=== PATIENT | male | born 1975 | race Caucasian/White ===

== ENCOUNTER 2017-08-16 21:33 | Emergency (ER) | payer OTHER ==
[2017-08-16] MEDS ORDERED: HYDROCODONE/ACETAMINOPHEN 5-325 MG (6 TAB/ER DISP) PO PRN (22:49)
[2017-08-16] MEDS ORDERED: PREDNISONE 20 MG TABLET PO ONE (22:49)
[2017-08-16] MEDS ORDERED: DIAZEPAM INJ 10 MG/2 ML DISP.SYRIN IM ONE (22:49)
--- NOTE | 2017-08-16 22:53 | ER Document Report ---
HPI - HPI Patient complains to provider of: lower back pain Pain Level: 5 Context: Patient is a 42-year-old male comes emergency department for chief complaint of lower back pain that radiates down the back of his left leg. He states that when he sits up, makes position changes, or twists he has very sharp pain. He denies numbness, loss of bowel or bladder control. He states symptoms started about 1.5 days after he almost fell and caught himself and twisted his back. He denies any impact injury. He states initially after the injury he thought he was fine. Almost 1 week his past and he has only worsened. He states he can feel muscle spasms. He has been diagnosed with a herniated disc in his lower back in the past. He denies any surgeries or daily medications. He denies any fevers or IV drug history. Past Medical History - General Information source: Patient - Social History Smoking Status: Never Smoker Frequency of alcohol use: None Drug Abuse: None Lives with: Family Family History: Reviewed & Not Pertinent Surgical Hx: Negative - Immunizations Immunizations up to date: Yes Hx Diphtheria, Pertussis, Tetanus Vaccination: Yes Vertical Provider Document - CONSTITUTIONAL General Appearance: WD/WN, Mild Distress - Patient curved over to the right side , he is able to move but he moves with some difficulty and wincing - INFECTION CONTROL TRAVEL OUTSIDE OF THE [place] IN LAST 30 DAYS: No - HEENT HEENT: Atraumatic, Normocephalic - NECK Neck: Normal Inspection - RESPIRATORY Respiratory: Breath Sounds Normal, No Respiratory Distress O2 Sat by Pulse Oximetry: 99 - CARDIOVASCULAR Cardiovascular: Regular Rate, Regular Rhythm - GI/ABDOMEN Gastrointestinal: Abdomen Soft, Abdomen Non-Tender - BACK Back: negative: Normal Inspection - Patient with significant tenderness with palpation over the lateral lumbar paraspinal muscles, however he has no midline tenderness, no saddle anesthesia, normal upper and lower extremity range of motion, normal distal neurovascular exam. - MUSCULOSKELETAL/EXTREMETIES Musculoskeletal/Extremeties: MAEW, FROM, Non-Tender - NEURO Level of Consciousness: Awake, Alert, Appropriate - DERM Integumentary: Warm, Dry, No Rash Course - Re-evaluation Re-evalutation: Patient with musculoskeletal tenderness on palpation, symptoms very suggestive of sciatica, no neurological deficits, fever, reported risk factors for abscess , cauda equina, normal distal pulses, low suspicion of dissection. Treating for muscle spasms and sciatica, discussed follow-up, [facility], states he will follow-up with them for imaging if symptoms continue. Discussed return precautions in detail, patient and family state understanding and agreement. - Vital Signs Vital signs: Temp Pulse Resp BP Pulse Ox 98.4 F 97 20 153/79 H 99 08/16/17 22:22 08/16/17 22:22 08/16/17 22:22 08/16/17 22:22 08/16/17 22:22 Discharge - Discharge Clinical Impression: Lower back pain Qualifiers: Chronicity: acute Back pain laterality: left Sciatica presence: with sciatica Sciatica laterality: sciatica of left side Qualified Code(s): M54.42 - Lumbago with sciatica, left side Condition: Stable Disposition: HOME, SELF-CARE Additional Instructions: Examination consistent with muscular spasm and sciatica. It is quite possible you have disc herniation. Take prednisone as prescribed, take Valium as prescribed, apply heat to the area and rest. Follow-up with primary care for additional evaluation and management. Return immediately for any worsening symptoms including numbness, loss of bowel or bladder control, fever, or any other concerning symptoms. Prescriptions: Diazepam [Valium 5 mg Tablet] 1 - 2 tab PO TID PRN #15 tablet PRN Reason: Prednisone [Deltasone 10 mg Tablet] 10 mg PO ASDIR PRN #21 tablet PRN Reason:
[2017-08-16 22:55] VITALS: BP 149/94
== END 2017-08-16 23:30 | disposition home or self-care (01) ==
LOC: ER 21:33
DX: M54.42 Lumbago with sciatica, left side (principal)
CPT/HCPCS: 99283; 96372; J3360; J7512